=== PATIENT | male | born 1995 | race African-American/Black ===

== ENCOUNTER 2019-01-29 13:55 | Emergency (ER) | payer OTHER ==
[~2019-01-29] VITALS: Ht 175.3 cm; Wt 59.0 kg
[2019-01-29 14:46] LABS: CLARITY,URINE CLOUDY (Clear); COLOR,URINE YELLOW (Yellow); GLUCOSE, URINE NEGATIVE (Neg); KETONES,URINE NEGATIVE (Neg); LEUKOCYTE ESTERASE ,URINE SMALL (Neg); NITRITES, URINE NEGATIVE (Neg); OCCULT BLOOD,URINE NEGATIVE (Neg); PH,URINE 8.5 (4.8-8.0); PROTEIN,URINE TRACE mg/dl (Neg); UROBILINOGEN,URINE 0.2 E.U/dL (0.2-1.0)
[2019-01-29 14:47] LABS: UA COLLECTION TYPE CLN CATCH MIDSTREAM
[2019-01-29] MEDS ORDERED: azithromycin 250mg tablet PO ONE (14:50)
[2019-01-29] MEDS ORDERED: CefTRIAXone 1000mg IM Kit (w/lidocaine diluent) IM ONE (14:50)
[2019-01-29 14:52] LABS: BACTERIA,URINE 1+ /HPF (Neg); MUCUS STRANDS FEW /LPF (Neg); RBC,URINE 0-2 /HPF (0-2); SQUAMOUS EPITHELIAL CELL,UR FEW /LPF (FEW); WBC,URINE 50-100 /HPF (0-4)
[2019-01-29] MEDS ORDERED: CEPH500C5 PO (14:57)
[2019-01-29 15:28] VITALS: BP 151/78
== END 2019-01-29 15:30 | disposition home or self-care (01) ==
LOC: ER 13:57
DX: N39.0 Urinary tract infection, site not specified (principal)
CPT/HCPCS: 36415; 81001; 87088; 87491; 87591; 96372; 99283; J0696